=== PATIENT | female | born 2000 | race Caucasian/White ===

== ENCOUNTER → 2023-06-18 10:53 | Outpatient (CLI) | payer BC, SELFPAY ==
--- NOTE | ~2023-06-18 | XR_ITS ---
EXAM: XR lumbar spine 2-3V DATE: 06/18/2023 11:14 HISTORY: Low back pain . COMPARISON: None available. FINDINGS: 5 nonrib-bearing lumbar-type vertebral bodies. Pedicles intact. Normal vertebral body alig nment. Vertebral body heights preserved. Mild anterior wedge deformity at T12, likely physiologic. Di sc spaces maintained. Normal facets and posterior elements. No fracture or dislocation. IMPRESSION: Mild antral deformity at T12, likely physiologic unless accompanied by acute pain/tenderness. Otherwise normal lumbar spine radiograph findings. Reviewed, dictated and finalized at location K. IMPRESSION: Mild antral deformity at T12, likely physiologic unless accompanied by acute pa in/tenderness. Otherwise normal lumbar spine radiograph findings.
== END ==
PROVIDERS: PCP Family Medicine; Visit Provider Chiropractor
DX: M54.50 Low back pain, unspecified (principal)
CPT/HCPCS: 72100